=== PATIENT | male | born 1960 | race Caucasian/White ===

== ENCOUNTER → 2018-11-05 | Emergency (ER) | payer SELFPAY ==
[~2018-11-05] VITALS: Ht 198.1 cm; Wt 121.6 kg
[~2018-11-05] MED LIST: DIPHTH/TET/ACEL PERTUSS (ADULT) 0.5 ML VIAL IM* ONE; IBUP-1542 PO; IBUPROFEN 600 MG TAB PO ONE; LIDOCAINE 1% (MDV) 20 ML INJ SC ONE
[2018-11-05 21:37] VITALS: Ht 198.1 cm; Wt 121.6 kg
--- NOTE | 2018-11-06 00:51 | ERD ---
ER Documentation Chief Complaint Chief Complaint Pt cut back of head with xacto knife when a bee landed on him HPI This is a 57-year-old man who sustained an accidental cut to the back of the scalp when he tried to swat away bee was flying around his head. He happened to be holding an X-Acto knife and accidentally sustained a cut to the back of the scalp. He denies heavy bleeding, no complaints of paresthesias to the scalp or head, no dizziness or loss of consciousness, no complaints of chest pain or shortness of breath. ROS All systems reviewed and are negative except as per history of present illness. Medications Home Meds Active Scripts Ibuprofen* (Motrin*) 600 Mg Tab, 600 MG PO Q8 PRN for PAIN AND/OR INFLAMMATION, #30 TAB Prov:ANNA BLAS MD 11/06/18 Allergies Allergies: Coded Allergies: No Known Allergy (Unverified , 11/05/18) PMhx/Soc Medical and Surgical Hx: pt denies Medical Hx, pt denies Surgical Hx Hx Alcohol Use: No Hx Substance Use: Yes (marijuana daily) Hx Tobacco Use: No Smoking Status: Never smoker FmHx Family History: No diabetes Physical Exam Vitals Vital Signs Date Temp Pulse Resp B/P (MAP) Pulse Ox O2 O2 Flow FiO2 Time Delivery Rate 11/05/18 58 16 220/139 99 Room Air 23:19 (166) 11/05/18 98.4 72 16 209/114 100 21:37 (145) Physical Exam GENERAL: Well-developed, well-nourished, well-hydrated, in no apparent distress, looks nontoxic in appearance NEURO: Alert and oriented 3, cranial nerves II through XII intact bilaterally, pupils equal round reactive to light, no focal deficits or facial asymmetry, sensation intact distally Strength 5/5 in upper and lower extremities bilaterally SKIN: 4 cm vertical laceration to the mid posterior lower scalp, no hematomas or ecchymosis EXTREMITIES: No clubbing cyanosis or edema, calves are bilaterally symmetrical, no Homans sign, no popliteal cord sign. Distal pulses equal and bilateral PSYCH: Normal affect without agitation or irritability Results 24 hrs Current Medications Medications Dose Sig/Danna Start Time Status Last (Trade) Ordered Route PRN Stop Time Admin Dose Reason Admin Diphtheria/ 0.5 ml ONCE ONCE 11/06/18 DC 11/06/18 Tetanus/Acell IM* 00:00 00:19 Pertussis 11/06/18 00:01 (Adacel) Lidocaine 20 ml ONCE ONCE 11/06/18 DC (Xylocaine SC 00:00 1% (Mdv) 20 11/06/18 00:01 ml) Ibuprofen 600 mg ONCE ONCE 11/06/18 DC 11/06/18 (Motrin) PO 00:00 00:11 11/06/18 00:01 Clonidine 0.1 mg ONCE ONCE 11/06/18 DC 11/06/18 (Catapres) PO 01:00 01:01 11/06/18 01:01 Procedures/MDM I administered clonidine 0.1 mg p.o. x1 for hypertension ibuprofen [address] scan of the brain, I did tell him my concerns given the location of injury although he still refused. Laceration was inspected by me and copiously irrigated with saline, I applied anesthetic 1% lidocaine subcutaneous injections, anesthetic took effect and I applied 4 eliel. Final length of the laceration was 4 cm. Patient feels much better at this time, and vital signs are normal, symptoms have improved. I did give strict instructions to return to the ED if symptoms continue or worsen, patient will otherwise follow-up with primary care physician. Patient understood instructions and agreed to plan. Disclaimer: Inadvertent spelling and grammatical errors are likely due to EHR/dictation software use and do not reflect on the overall quality of patient care. Also, please note that the electronic time recorded on this note does not necessarily reflect the actual time of the patient encounter. Departure Diagnosis: Primary Impression: Scalp laceration Encounter type: initial encounter Qualified Codes: S01.01XA - Laceration without foreign body of scalp, initial encounter Additional Impression: Hypertension Hypertension type: essential hypertension Qualified Codes: I10 - Essential (primary) hypertension Condition: ANNA Gonzalez MD Nov 06, 2018 00:51
[2018-11-06 01:41] VITALS: BP 171/109; PULSE 58; RESP 15
== END | disposition home or self-care (01) ==
LOC: E/R 21:33
DX: S01.01XA Laceration without foreign body of scalp, initial encounter (principal); I10 Essential (primary) hypertension; W26.0XXA Contact with knife, initial encounter; Y92.9 Unspecified place or not applicable; Z23 Encounter for immunization
CPT/HCPCS: 90471; 90715